=== PATIENT | male | born 1960 | race American Indian/Alaskan Native ===

== ENCOUNTER 2017-04-26 22:43 | Inpatient (IN) | payer MEDICARE, MEDICAID ==
--- NOTE | 2017-04-26 23:04 | ED PDOC ---
HPI: Psych/Substance Abuse Time Seen by Provider: 04/26/17 22:51 Chief Complaint (Nursing): Psychiatric Evaluation Chief Complaint (Provider): SI - without plan History Per: Patient History/Exam Limitations: no limitations Onset/Duration Of Symptoms: Days Current Symptoms Are (Timing): Still Present Additional Complaint(s): Pt states he has had a few episodes where he feels confused. PT states he is concerned he is developing dementia. Pt states that he has not seen a doctor about his concerns. Pt states he is now having SI because of thoughts about having dementia. Pt reports his grandmother having it and states it was horrible. Past Medical History Reviewed: Historical Data, Nursing Documentation, Vital Signs Vital Signs: Last Vital Signs Temp 97.3 F L 04/26/17 22:47 Pulse 99 H 04/26/17 22:47 Resp 17 04/26/17 22:47 BP 153/101 H 04/26/17 22:47 Pulse Ox 98 04/26/17 22:47 - Medical History PMH: Depression, HTN (Not taking medications ) Other PMH: Taking abilify and wellbutrin - Surgical History Surgical History: No Surg Hx - Family History Family History: States: No Known Family Hx - Living Arrangements Living Arrangements: With Family - Social History Current smoker - smoking cessation education provided: No - Allergies Allergies/Adverse Reactions: Allergies Allergy/AdvReac Type Severity Reaction Status Date / Time No Known Allergies Allergy Verified 04/26/17 22:47 Review of Systems ROS Statement: Except As Marked, All Systems Reviewed And Found Negative Constitutional: Negative for: Fever, Chills Psych: Positive for: Depression, Suicidal ideation Physical Exam - Reviewed Nursing Documentation Reviewed: Yes Vital Signs Reviewed: Yes - Physical Exam Appears: Positive for: Well, Non-toxic, No Acute Distress Head Exam: Positive for: ATRAUMATIC, NORMAL INSPECTION, NORMOCEPHALIC Skin: Positive for: Normal Color, Warm, DRY Eye Exam: Positive for: Normal appearance ENT: Positive for: Normal ENT Inspection Neck: Positive for: Normal, Painless ROM Cardiovascular/Chest: Positive for: Regular Rate, Rhythm Respiratory: Positive for: CNT, Normal Breath Sounds Back: Positive for: Normal Inspection Extremity: Positive for: Normal ROM Neurologic/Psych: Positive for: Alert, Oriented - ECG O2 Sat by Pulse Oximetry: 98 Medical Decision Making Medical Decision Making: Crisis evaluation completed. Dr. Lizama states he would like a urine drug screen and alcohol prior to making a decision. Endorsed to [facility] pending medical clearance Disposition - Clinical Impression Clinical Impression: Suicidal ideation - Patient ED Disposition Is Patient to be Admitted: Transfer of Care - Disposition Disposition: Transfer of Care Disposition Time: 23:31 Condition: GOOD Forms: [facility] (Urdu)
[2017-04-27 00:07] LABS: BASO # 0.1 K/uL (0.0-0.2); EOS # 0.3 K/uL (0.0-0.7); EOS % 3.2 % (0.0-4.0); HEMATOCRIT 41.7 % (35.0-51.0); LYMPH # 2.4 K/uL (1.0-4.3); LYMPH % 23.2 % (20.0-40.0); MEAN CELL VOLUME 93.2 fl (80.0-94.0); MEAN CORPUSCULAR HEMOGLOBIN 30.9 pg (27.0-31.0); MEAN CORPUSCULAR HGB CONC 33.1 g/dL (33.0-37.0); MEAN PLATELET VOLUME 8.1 fl (7.2-11.7); MONO # 0.9 K/uL (0.0-0.8); MONO % 9.1 % (0.0-10.0); NEUT # 6.6 K/uL (1.8-7.0); NEUT % 63.5 % (50.0-75.0); RED CELL DISTRIBUTION WIDTH 13.7 % (11.5-14.5); WHITE BLOOD COUNT 10.4 K/uL (4.8-10.8)
[2017-04-27 00:17] LABS: ALB/GLOB RATIO 1.4 (1.0-2.1); ALCOHOL SERUM < 10 mg/dl (0-10); ALKALINE PHOSPHATASE 89 U/L (38-126); ALT/SGPT 43 U/L (21-72); AST/SGOT 59 U/L (17-59); BILIRUBIN,TOTAL 0.8 mg/dl (0.2-1.3); BLOOD UREA NITROGEN 21 mg/dl (9-20); CARBON DIOXIDE 22 mmol/L (22-30); CHLORIDE 103 mmol/L (98-107); GFR AFRICAN-AMERICAN > 60; GLUCOSE,RANDOM 126 mg/dL (75-110); POTASSIUM 3.2 MMOL/L (3.6-5.0); SODIUM 139 mmol/l (132-148); TOTAL PROTEIN 8.2 G/DL (6.3-8.2)
[2017-04-27 01:52] LABS: URINE BILIRUBIN NEGATIVE (NEGATIVE); URINE BLOOD NEGATIVE (NEGATIVE); URINE COLOR YELLOW (YELLOW); URINE GLUCOSE (UA) NEG (Normal); URINE KETONE TRACE mg/dL (NEGATIVE); URINE LEUKOCYTE ESTERASE TRACE Leu/uL (Negative); URINE PROTEIN 100 mg/dL (NEGATIVE)
--- NOTE | 2017-04-27 02:41 | ED PDOC ---
- Laboratory Results Result Diagrams: 04/27/17 00:06 04/27/17 00:06 - ECG O2 Sat by Pulse Oximetry: 98 - Progress ED Course And Treament: SEEN BY CRISIS. D/W DR. DUSTY MONTANO TO COME TO ED FOR EVALUATION OF PATEINT. Disposition - Clinical Impression Clinical Impression: Suicidal ideation - POA Present On Arrival: None - Disposition Disposition: Transfer of Care Disposition Time: 06:00 Condition: GOOD Forms: [facility] (Finnish) Patient Signed Over To: Neo Nguyen Handoff Comments: PENDING EVALUATION BY DR. MONTANO
--- NOTE | 2017-04-27 06:33 | ED PDOC ---
- Laboratory Results Result Diagrams: 04/27/17 00:06 04/27/17 00:06 - ECG O2 Sat by Pulse Oximetry: 98 (RA) Pulse Ox Interpretation: Normal Medical Decision Making Medical Decision Makin:00 Patient signed out to me from MEHRDAD Kirkpatrick. Clinical sobriety and face-to- face evaluation with Dr. Lizama pending. Scribe Attestation: Documented by Viki Cunningham, acting as a scribe for Neo Nguyen MD. Provider Scribe Attestation: All medical record entries made by the Scribe were at my direction and personally dictated by me. I have reviewed the chart and agree that the record accurately reflects my personal performance of the history, physical exam, medical decision making, and the department course for this patient. I have also personally directed, reviewed, and agree with the discharge instructions and disposition. Disposition - Clinical Impression Clinical Impression: Depression, Suicidal ideation - POA Present On Arrival: None - Disposition Disposition: Transfer of Care Disposition Time: 07:00 Condition: GOOD Patient Signed Over To: Cholo De Dios III ED OBSERVATION Date of observation admission: 04/27/17 Time of observation admission: 06:00 - Observation admission statement Patient is being placed in observation because:: Alcohol intoxication - Goals of Observation Goals of observation are:: Clinical sobriety - Progress Note Progress Note: 04/27/17 06:00 Patient's vitals are stable.
--- NOTE | 2017-04-27 07:09 | ED PDOC ---
- Laboratory Results Result Diagrams: 04/27/17 00:06 04/27/17 00:06 - ECG O2 Sat by Pulse Oximetry: 98 (RA) Pulse Ox Interpretation: Normal Medical Decision Making Medical Decision Makin:00 Patient signed out to me from Dr. Nguyen. Clinical sobriety and [id number] evaluation by Dr. Lizama pending. Scribe Attestation: Documented by Viki Cunningham, acting as a scribe for Cholo De Dios DO. Provider Scribe Attestation: All medical record entries made by the Scribe were at my direction and personally dictated by me. I have reviewed the chart and agree that the record accurately reflects my personal performance of the history, physical exam, medical decision making, and the department course for this patient. I have also personally directed, reviewed, and agree with the discharge instructions and disposition. Disposition - Clinical Impression Clinical Impression: Suicidal ideation, Depression - POA Present On Arrival: None - Disposition Disposition: Admitted as In-Patient Disposition Time: 08:36 Condition: GOOD ED OBSERVATION Date of observation admission: 04/27/17 Time of observation admission: 07:00 - Observation admission statement Patient is being placed in observation because:: Alcohol intoxication - Goals of Observation Goals of observation are:: Clinical sobriety - Progress Note Progress Note: 04/27/17 07:00 Patient's vitals are stable. 04/27/17 08:35 Pt accepted for admission by psychiatrist. Labs and diagnostics reviewed EKG mildly prolonged QTc, may want to avoid QT prolonging agents. CXR read as no acute findings. Medically stable for psychiatric admission.
--- NOTE | 2017-04-27 08:26 | RAD ---
HISTORY: SI - Possible admission COMPARISON: None available. TECHNIQUE: Chest PA and lateral FINDINGS: LUNGS: No focal consolidation. 8 mm bilateral nodular densities appear compatible with nipple shadows. Please note that chest x-ray has limited sensitivity for the detection of pulmonary masses. PLEURA: No significant pleural effusion identified. No definite pneumothorax . CARDIOVASCULAR: Heart size appears within normal limits. OSSEOUS STRUCTURES: Degenerative changes of the spine. VISUALIZED UPPER ABDOMEN: Unremarkable. OTHER FINDINGS: None. IMPRESSION: No acute findings identified. Incidental findings as above.
[2017-04-27 08:36] VITALS: O2SAT 98
[2017-04-27] MEDS ORDERED: Potassium Chloride 20 mEq ER Tab PO ONE ×3 (08:36→17:43)
[2017-04-27] MEDS ORDERED: DiphenhydrAMINE 50 mg/ml Inj IM PRN (11:54)
[2017-04-27] MEDS ORDERED: Alum-Mag Hydrox-Simethicone Susp (30 mL) PO PRN (11:54)
[2017-04-27] MEDS ORDERED: Magnesium Hydroxide Susp 30 ml UD PO PRN (11:54)
--- NOTE | 2017-04-27 12:04 | PCM.PSYCH ---
Initial Psychiatric Evaluation - Initial Psychiatric Evaluation Type of Admission: Voluntary Legal Status: Capacity Chief Complaint (in patient's own words): i feel confused Patient's Reaction to Hospitalization: cooperative History of Present Illness and Precipitating Events: 56 yo male, apparently homeless and was from [facility] [place] where he apparently lost his apartment because "i don't think i paid my rent." pt presented to [place] [facility] where he walked after asking for directions. he stated he wanted to jump in front of a train to end his life. he did not mention his substance use until confronted with positive uds results and then states "i smoked mj a few days ago. also admits to smoking crack cocaine recently." pt states he is not feeling suicidal now in the hospital but he thinks "i need to be sent to assisted living, because i'm having trouble taking care of my needs." he states his mother had alzheimers disorder and he is worried that he has it also. he states he thinks he is demented. he claims he can't remember where he was living in [facility] [place] and where his last hospitalization was. he knows he takes wellbutrin and abilify, but does not know the dosages. Current Medications: Active Medications Generic Name Dose Route Start Last Admin Trade Name Freq PRN Reason Stop Dose Admin Acetaminophen 650 mg 04/27/17 11:54 Tylenol 325mg Tab PO Q4 PRN Pain, moderate (4-7) Al Hydrox/Mg Hydrox/Simethicone 30 ml 04/27/17 11:54 Maalox Plus 30 Ml PO Q4 PRN Dyspepsia Aripiprazole 10 mg 04/27/17 12:00 Abilify PO DAILY NATHEN Bupropion HCl 150 mg 04/28/17 09:00 Wellbutrin Sr 150 Mg PO DAILY NATHEN Diphenhydramine HCl 50 mg 04/27/17 11:54 Benadryl IM Q6 PRN Extrapyramidal S/S Unable PO Diphenhydramine HCl 50 mg 04/27/17 11:54 Benadryl PO Q6 PRN Extrapyramidal Symptoms Haloperidol 5 mg 04/27/17 11:54 Haldol PO Q4 PRN Agitation Haloperidol Lactate 5 mg 04/27/17 11:54 Haldol IM Q4 PRN Agitation, Unable to Take PO Lorazepam 2 mg 04/27/17 11:54 Ativan IM Q4 PRN Anxiety/Agitation,Unable PO Lorazepam 2 mg 04/27/17 11:54 Ativan PO Q4 PRN Anxiety/Agitation Magnesium Hydroxide 30 ml 04/27/17 11:54 Milk Of Magnesia PO HS PRN Constipation Past Psychiatric History - Past Psychiatric History Previous Treatment History: Inpatient Prior Professional Help: at least 4 previous admissions History of Abuse: does not report History of ETOH/Drug Use: crack cocaine use, mj use. cigarette use, but does not quantify. History of Family Illness: denies Pertinent Medical Hx (Current Medical&Sleep Prob, Allergies): Allergies Allergy/AdvReac Type Severity Reaction Status Date / Time No Known Allergies Allergy Verified 04/26/17 22:47 No Known Home Med 04/27/17 Review of Systems - Psychiatric Psychiatric: As Per HPI Mental Status Examination - Affect Affect: Blunted, Depressed - Motor Activity Motor Activity: Calm - Reliability in Providing Information Reliability in Providing Information: Fair - Speech Speech: Organized (but vague) - Mood Mood: Depressed - Formal Thought Process Formal Thought Process: No Impairment - Obsessions/Compulsions Obsessions: No Compulsions: No - Cognitive Functions Orientation: Person, Place, Situation, Time Sensorium: Alert Abstract Thinking: [place] Estimate of Intelligence: Average Judgement: Intact, as evidence by: Insight regarding need for hospitalization Memory: Recent intact, as evidence by: Other (seems to be selectively able to remember recent events) - Risk Risk: Suicidal (denies prior attempts- i did stand on a bridge once and think about jumping but i called the police), Diminished functioning - Strength & Assets Inventory Strength & Assets Inventory: Life experience - Limitations Limitations: Other (lacks supports, housing) DSM 5 DX - DSM 5 DSM 5 Diagnosis: major depression recurrent severe - Recommended/Plan of Treatment Treatment Recommendations and Plan of Treatment: admit to 3np for safety and observation gather collateral information restart medications- restart abilify and wellbutrin hospitalist consult encourage participation in therapy disposition planning Projected ELOS: 3-5 days Prognosis: fair - Smoking Cessation Smoking Cessation Initiated: No
--- NOTE | 2017-04-27 17:20 | PCM.BM ---
<Magnus Huynh - Last Filed: 04/27/17 17:33> Treatment Plan Problems - Problems identified on initial assessmt Problem 1 Date Initiated: 04/27/17 Time Initiated: : Assessment reference: NA Status: Active Hopelessness/Helplessness Date Initiated: 04/27/17 Time Initiated: 17:25 Assessment reference: NA Status: Active Treatment assets and liabiliti Patient Assests: adapts well, cooperative, ADL independent, good interpersonal skills Patient Liabilities: financial problems, substance abuse, imparied memory - Milieu Protocol Maintain good personal hygiene: daily Encourage regular showers, daily Remind patient to perform daily oral care, daily Assist patient to perform ADL's Maintain personal safety: daily Educate patient to report safety concerns to staff, every shift Monitor environment for contraband/sharps Medication safety: Monitor for expected outcome, potential side effects: every shift, Assess barriers to learning: every shift, Assess readiness for medication education: every shift Milieu Narrative: admit to 3np for safety and observation gather collateral information restart medications- restart abilify and wellbutrin hospitalist consult encourage participation in therapy disposition planning Discharge/Continuing Care - Education Needs Education Needs: Patient Medication, Patient Coping Skills, Patient Pain, Patient Personal Hygiene/Grooming - Treatment Team Participation Patient/Family/SO Statement: admit to 3np for safety and observation gather collateral information restart medications- restart abilify and wellbutrin hospitalist consult encourage participation in therapy disposition planning <Bobbi Sanabria - Last Filed: 04/30/17 15:49> Treatment assets and liabiliti Patient Assests: cooperative, resourceful, self-reliant, ADL independent, physically healthy, negotiates basic needs Patient Liabilities: financial problems, poor support system, substance abuse Family Contact Family involvement: Patient does not wish Family/SO involvement Family contact: Patient declines to allow family contact at present - Outside Agency Agency 1 Care involvment: Following patient during stay, Information-sharing, Other Agency contact name: [facility]. Patient has declined to provide consent for family/friends. Patient initially not agreeable to allowing signwriter to contact [facility] staff but later agreed. Director Talent Management received call from Nataliia (case maker) on 04/28 looking for patient but was unable to provide collateral information without consent. Director Talent Management to place call on 04/30 to further discuss patients progress on 3NP/ discharge plan. Agency contact number: ([phone]) - Goals for Treatment Patient goals for treatment: Patient continues to report believing he is showing signs of Alzheimers. Patient unable to provide sufficient necessary collateral secondary to memory lapses. Patient reports symptoms of depression and periods of confusion. Patient socially withdrawn and isolative on 3NP. Patient will continue stabilization on 3NP through medication management and group/supportive therapy. Patient to be encouraged to attend 3-6 groups/weekly to develop appropriate coping skills, improve insight, promote self-esteem, compliance and safety. Patient to be provided with referral for appropriate level of aftercare. Discharge/Continuing Care - Treatment Team Participation Patient/Family/SO Statement: 04/30/17 15:48 Patient is more forthcoming with collateral than upon admission. Patient disclosed in treatment team that he owes a drug dealer a significant amount of money and no longer feels safe in the supportive housing program or in [place]. Patient reports relapsing on cocaine prior to admission with intentions to end life. Patient continues to express concerns regarding possible symptoms of dementia. Patient appears to be selective regarding things he remembers and does not present with symptoms associated with dementia. Patient remains depressed, internally preoccupied and somewhat paranoid. Patient remains withdrawn on 3NP. Patient has been provided with psychoeducation regarding effects of depression on concentration, focus and memory.
--- NOTE | 2017-04-27 18:07 | CP.PCM.CON ---
History of Present Illness - History of Present Illness History of Present Illness: CC: "I am depressed" This is a 56-year-old male with past medical history of hypertension and depression, who the hospitalist services consulted on for medical management while the patient is in psychiatric facility at [facility]. He is currently here for suicidal ideation. The patient states that lately he has been having worsening forgetfulness and often loses his train of thought midsentence. This is been worsening over the past several months. He denies seeing a physician previously about this problem. The patient is a poor historian and states that he cannot really remember his medical problems. He is uncertain if he is had any surgeries in the past. He notes that he has walked a lot recently causing him to have blisters on both of his feet. He denies any recent illnesses. He admits to crack cocaine use along with marijuana use. He notes that he has been not been eating well lately but cannot explain why. Patient denies chest pain, recent illnesses, shortness of breath, fevers, chills , nausea, vomiting, diarrhea, headache. Rest of ROS as below. All of the patient 's and/or family's questions were answered at the bedside. Review of Systems - Hematologic/Lymphatic Additional comments: GENERAL/CONSTITUTIONAL: The patient denies fever, fatigue, weakness, weight gain or weight loss. HEAD, EYES, EARS, NOSE AND THROAT: Eyes - The patient denies pain, redness, loss of vision, double or blurred vision, flashing lights or spots, dryness, Ears, nose, mouth and throat. The patient denies ringing in the ears, loss of hearing, nosebleeds, loss of sense of smell, dry sinuses, sinusitis, post nasal drip, CARDIOVASCULAR: The patient denies chest pain, chest pressure, or irregular heartbeats, RESPIRATORY: The patient denies chronic dry cough, coughing up blood, coughing up mucus, wheezing, or shortness of breath. GASTROINTESTINAL: The patient denies decreased appetite, nausea, vomiting, vomiting blood or coffee ground material, heartburn, regurgitation, diarrhea, constipation, gas, blood in the stools, black tarry stools. GENITOURINARY: The patient denies difficult urination, pain or burning with urination, blood in the urine, frequency, or urgency MUSCULOSKELETAL: The patient denies arm, buttock, thigh or calf cramps. No joint or muscle pain. No muscle weakness or tenderness. No joint swelling, neck pain, back pain. SKIN: Admits to blisters on his feet bilaterally. The patient denies easy bruising, skin redness, skin rash, hives, sensitivity to sun exposure, tightness , nodules or bumps, hair loss, color changes in the hands or feet with cold. NEUROLOGIC: The patient denies headache, dizziness, fainting, muscle spasm, loss of consciousness, sensitivity or pain in the hands and feet or memory loss. PSYCHIATRIC: See HPI. ENDOCRINE: The patient denies intolerance to hot or cold temperature, flushing, fingernail changes, increased thirst, increased salt intake or decreased sexual desire. HEMATOLOGIC/LYMPHATIC: The patient denies anemia, bleeding tendency or clotting tendency. ALLERGIC/IMMUNOLOGIC: The patient denies rhinitis, asthma, skin sensitivity, latex allergies or sensitivity. Past Patient History - Infectious Disease Hx of Infectious Diseases: None - Past Social History Smoking Status: Former Smoker Alcohol: > 2 Drinks/Day Drugs: Cannabis, Cocaine - CARDIAC Hx Cardiac Disorders: Yes (htn) Hx Hypertension: Yes - PULMONARY Hx Respiratory Disorders: No - NEUROLOGICAL Other/Comment: Mother had dementia pt is afraid he is getting it. - HEENT Hx HEENT Problems: No - RENAL Hx Chronic Kidney Disease: No - ENDOCRINE/METABOLIC Hx Endocrine Disorders: No - HEMATOLOGICAL/ONCOLOGICAL Hx Blood Disorders: No - INTEGUMENTARY Hx Dermatological Problems: No - MUSCULOSKELETAL/RHEUMATOLOGICAL Hx Musculoskeletal Disorders: No - GASTROINTESTINAL Hx Gastrointestinal Disorders: No - GENITOURINARY/GYNECOLOGICAL Hx Genitourinary Disorders: No - PSYCHIATRIC Hx Depression: Yes Hx Substance Use: No - SURGICAL HISTORY Hx Surgeries: No - ANESTHESIA Hx Anesthesia: No Meds Allergies/Adverse Reactions: Allergies Allergy/AdvReac Type Severity Reaction Status Date / Time No Known Allergies Allergy Verified 04/26/17 22:47 - Medications Medications: Current Medications Acetaminophen (Tylenol 325mg Tab) 650 mg PO Q4 PRN PRN Reason: Pain, moderate (4-7) Al Hydrox/Mg Hydrox/Simethicone (Maalox Plus 30 Ml) 30 ml PO Q4 PRN PRN Reason: Dyspepsia Aripiprazole (Abilify) 10 mg PO DAILY [facility] Last Admin: 04/27/17 17:34 Dose: 10 mg Bupropion HCl (Wellbutrin Sr 150 Mg) 150 mg PO DAILY [facility] Diphenhydramine HCl (Benadryl) 50 mg IM Q6 PRN PRN Reason: Extrapyramidal S/S Unable PO Diphenhydramine HCl (Benadryl) 50 mg PO Q6 PRN PRN Reason: Extrapyramidal Symptoms Haloperidol (Haldol) 5 mg PO Q4 PRN PRN Reason: Agitation Haloperidol Lactate (Haldol) 5 mg IM Q4 PRN PRN Reason: Agitation, Unable to Take PO Lorazepam (Ativan) 2 mg IM Q4 PRN PRN Reason: Anxiety/Agitation,Unable PO Lorazepam (Ativan) 2 mg PO Q4 PRN PRN Reason: Anxiety/Agitation Magnesium Hydroxide (Milk Of Magnesia) 30 ml PO HS PRN PRN Reason: Constipation Physical Exam - Additional Findings Additional findings: EXAM: Vitals stable and reviewed GEN: WDWN, alert, cooperative HEENT: NCAT, PERRL, EOMI Neck: supple, no lymphadenopathy CARDIO: +S1S2, RRR, NO M/R/G LUNG: CTAB, NO W/R/R ABD: soft, NT, ND, no masses, no HSM EXT: no edema, pedal pulses. Small blisters on both feet bilaterally on the plantar surface. left heel blister. No evidence of infection or opening of the skin. Neuro: AAOx3, Strength equal, bilateral UE/LE Psych: flat affect, depressed mood Results - Vital Signs Recent Vital Signs: Last Vital Signs Temp 97 F L 04/27/17 17:16 Pulse 64 04/27/17 17:16 Resp 18 04/27/17 17:16 BP 150/83 04/27/17 17:16 Pulse Ox 98 04/27/17 08:36 - Labs Result Diagrams: 04/27/17 00:06 04/27/17 00:06 Labs: Laboratory Results - last 24 hr 04/27/17 04/27/17 04/27/17 00:06 00:06 01:46 WBC 10.4 RBC 4.47 Hgb 13.8 Hct 41.7 MCV 93.2 MCH 30.9 MCHC 33.1 RDW 13.7 Plt Count 238 MPV 8.1 Neut % (Auto) 63.5 Lymph % (Auto) 23.2 Grainger % (Auto) 9.1 Eos % (Auto) 3.2 Baso % (Auto) 1.0 Neut # 6.6 Lymph # 2.4 Grainger # 0.9 H Eos # 0.3 Baso # 0.1 Sodium 139 Potassium 3.2 L Chloride 103 Carbon Dioxide 22 Anion Gap 17 BUN 21 H Creatinine 1.2 Est GFR ( Amer) > 60 Est GFR (Non-Af Amer) > 60 Random Glucose 126 H Calcium 10.0 Total Bilirubin 0.8 AST 59 ALT 43 Alkaline Phosphatase 89 Total Protein 8.2 Albumin 4.8 Globulin 3.4 Albumin/Globulin Ratio 1.4 Urine Color Urine Clarity Urine pH Ur Specific Moran Urine Protein Urine Glucose (UA) Urine Ketones Urine Blood Urine Nitrate Urine Bilirubin Urine Urobilinogen Ur Leukocyte Esterase Urine Opiates Screen Negative Urine Methadone Screen Negative Ur Barbiturates Screen Negative Ur Phencyclidine Scrn Negative Ur Amphetamines Screen Negative U Benzodiazepines Scrn Negative U Oth Cocaine Metabols Positive H U Cannabinoids Screen Positive H Alcohol, Quantitative < 10 04/27/17 01:46 WBC RBC Hgb Hct MCV MCH MCHC RDW Plt Count MPV Neut % (Auto) Lymph % (Auto) Grainger % (Auto) Eos % (Auto) Baso % (Auto) Neut # Lymph # Grainger # Eos # Baso # Sodium Potassium Chloride Carbon Dioxide Anion Gap BUN Creatinine Est GFR ( Amer) Est GFR (Non-Af Amer) Random Glucose Calcium Total Bilirubin AST ALT Alkaline Phosphatase Total Protein Albumin Globulin Albumin/Globulin Ratio Urine Color Yellow Urine Clarity Cloudy Urine pH 5.0 Ur Specific Moran 1.034 H Urine Protein 100 Urine Glucose (UA) Neg Urine Ketones Trace Urine Blood Negative Urine Nitrate Negative Urine Bilirubin Negative Urine Urobilinogen 2.0 Ur Leukocyte Esterase Trace Urine Opiates Screen Urine Methadone Screen Ur Barbiturates Screen Ur Phencyclidine Scrn Ur Amphetamines Screen U Benzodiazepines Scrn U Oth Cocaine Metabols U Cannabinoids Screen Alcohol, Quantitative - Impressions Impression: EKG reveals sinus rhythm at rate of 81, occasional PACs, QT prolonged slightly at 422, T wave changes in lateral leads, no acute ST or T wave changes Assessment & Plan - Assessment and Plan (Free Text) Plan: ASSESSMENT - Essential hypertension - Hypokalemia due to poor po intake - Mild QT prolongation - History of crack cocaine use - Homelessness - Hyperglycemia (mild) - Depression with suicidal ideation and forgetfulness PLAN - Monitor vitals - HGA1C, lipid profile pending - Will give another 20meq of Kdur, repeat K in AM - Check Mag, phos as well in AM - No need to add antihypertensive medication at this time. Patient could benefit from FÁTIMA inhibitor such as lisinopril, small dose, if diabetes is confirmed with HGA1C. Note: patient should not have beta blockers due to unopposed alpha- stimulation from cocaine use - Continue Wellbutrin, Abilify as per psychiatry - Rest of psychiatric therapy deferred - Thank you for the consult
[2017-04-28 08:56] LABS: MAGNESIUM 2.3 MG/DL (1.6-2.3); PHOSPHOROUS 3.3 mg/dl (2.5-4.5); POTASSIUM 3.7 MMOL/L (3.6-5.0)
[2017-04-28] MEDS: buPROPion SR 150 MG TABLET PO SCH (10:12)
--- NOTE | 2017-04-28 13:27 | CARD ---
APPROVED REPORT EKG Measurement Heart [id number] MS [id number] <Conclusion> Sinus rhythm with premature atrial complexes Minimal voltage criteria for LVH, may be normal variant Nonspecific T wave abnormality Prolonged QT Abnormal ECG
[2017-04-29] MEDS: buPROPion SR 150 MG TABLET PO SCH (09:16)
--- NOTE | 2017-04-29 19:04 | PCM.PYCHPN ---
Psychiatric Progress Note - Psychiatric Progress Note Patient seen today, length of contact: pt sen and evaluated Patient Chief Complaint: pt has remained much internally preoccupied and minimises his substance ab use and remains with poor insight and need further stabilization.no side effects to meds . Medication Change: No Medical Record Reviewed: Yes Mental Status Examination - Cognitive Function Orientation: Person, Place, Situation, Time Memory: Intact Attention: Poor - Mood Mood: Depressed - Affect Affect: Blunted, Depressed - Speech Speech: Appropriate - Formal Thought Process Formal Thought Process: No Impairment - Suicidal Ideation Suicidal Ideation: No - Homicidal Ideation Homicidal Ideation: No Goal/Treatment Plan - Goal/Treatment Plan Progress Toward Problem(s) and Goals/Treatment Plan: will continue the current regimen of wellbutrin and abilify and titrate as needed to stabilize pt will engage pt in therapy and groups.
[2017-04-30] MEDS: buPROPion SR 150 MG TABLET PO SCH (08:48)
--- NOTE | 2017-04-30 12:23 | PCM.PYCHPN ---
Psychiatric Progress Note - Psychiatric Progress Note Patient seen today, length of contact: in treatment team Patient Chief Complaint: i feel confused Problems Identified/Issues Discussed: continues to feel confused. states he "may have taken money from some people who want to kill me" it "may have been thousands of dollars" it "may not be safe for me to go back to [place] ever" he has selective memory of things and vague on details of other things. he reports going to the store and not being able to remember why he is there. he has supportive housing but doesn't want to return to it. pt remembers now that "i may have tried to use cocaine to kill myself..you know, give my self a heart attack or something." Medication Change: Yes (inc. wellbutrin) Medical Record Reviewed: Yes Mental Status Examination - Cognitive Function Orientation: Person, Place, Situation, Time Memory: Intact Attention: WNL Concentration: Poor Association: WNL Fund of Knowledge: WNL Decription of patient's judgement and insights: fair - Mood Mood: Depressed - Affect Affect: Blunted, Depressed - Speech Speech: Soft - Formal Thought Process Formal Thought Process: No Impairment - Suicidal Ideation Suicidal Ideation: Yes Plan: passive currently. feels safe in hospital - Homicidal Ideation Homicidal Ideation: No Goal/Treatment Plan - Goal/Treatment Plan Need for Continued Stay: Remain at risks for inpatient hospitalization, Severe functional impairment Progress Toward Problem(s) and Goals/Treatment Plan: major depression recurrent will continue current meds with increase in wellbutrin pt does not appear to have dementia- may have some memory/concentration issues related to depression seems to have selected areas where he has memory and his complaints to not seem to follow pattern of a dementia diagnosis Estimated Date of D/C: 05/03/17
[2017-05-01] MEDS: buPROPion SR 150 MG TABLET PO SCH (08:46)
[2017-05-02] MEDS: buPROPion SR 150 MG TABLET PO SCH (09:39)
--- NOTE | 2017-05-02 09:59 | PCM.PYCHPN ---
Psychiatric Progress Note - Psychiatric Progress Note Patient seen today, length of contact: discussed with team Patient Chief Complaint: i am okay Problems Identified/Issues Discussed: continues to worry about being confused. able to remember name of the director of a movie when overheard the conversation of others and interrupted conversation to provide the name. sleeping well. still resistant to participating in groups. pt refusing to go back to his housing in [facility]. Medication Change: Yes (inc. abilify) Medical Record Reviewed: Yes Mental Status Examination - Cognitive Function Orientation: Person, Place, Situation, Time Memory: Intact Attention: WNL Concentration: WNL Association: [facility] Fund of Knowledge: [facility] Decription of patient's judgement and insights: fair - Mood Mood: Depressed, Anxious - Affect Affect: Blunted - Speech Speech: Soft - Formal Thought Process Formal Thought Process: No Impairment Psychotic Thoughts and Behaviors: denies a/v hallucinations. ? delusions/paranoid ideations - Suicidal Ideation Suicidal Ideation: No Plan: denies - Homicidal Ideation Homicidal Ideation: No Goal/Treatment Plan - Goal/Treatment Plan Need for Continued Stay: Remain at risks for inpatient hospitalization, Severe functional impairment Progress Toward Problem(s) and Goals/Treatment Plan: major depression recurrent will continue current meds with increase in abilify pt does not appear to have dementia- may have some memory/concentration issues related to depression that are improving with treatment seems to have selected areas where he has memory and his complaints to not seem to follow pattern of a dementia diagnosis Estimated Date of D/C: 05/03/17
[2017-05-03] MEDS: buPROPion SR 150 MG TABLET PO SCH (09:00)
--- NOTE | 2017-05-03 11:01 | PCM.PYCHPN ---
Psychiatric Progress Note - Psychiatric Progress Note Patient seen today, length of contact: discussed with team Patient Chief Complaint: i didn't sleep well Problems Identified/Issues Discussed: pt states he is feeling better. reports some poor sleep. he denies medication side effects. more visible in the milieu. Medication Change: No ( ) Medical Record Reviewed: Yes Mental Status Examination - Cognitive Function Orientation: Person, Place, Situation, Time Memory: Intact Attention: WNL Concentration: WNL Association: WNL Fund of Knowledge: [facility] Decription of patient's judgement and insights: fair - Mood Mood: Depressed - Affect Affect: Broad - Speech Speech: Soft - Formal Thought Process Formal Thought Process: No Impairment Psychotic Thoughts and Behaviors: denies a/v hallucinations. ? delusions/paranoid ideations - Suicidal Ideation Suicidal Ideation: No - Homicidal Ideation Homicidal Ideation: No Goal/Treatment Plan - Goal/Treatment Plan Need for Continued Stay: Remain at risks for inpatient hospitalization, Severe functional impairment Progress Toward Problem(s) and Goals/Treatment Plan: major depression recurrent will continue current meds pt does not appear to have dementia- may have some memory/concentration issues related to depression that are improving with treatment seems to have selected areas where he has memory and his complaints to not seem to follow pattern of a dementia diagnosis will have dr. sandoval see pt prior to discharge discharge tomorrow Estimated Date of D/C: 05/04/17
[2017-05-04] MEDS: buPROPion SR 150 MG TABLET PO SCH (08:59)
[2017-05-04 09:00] VITALS: BP 119/89
--- NOTE | 2017-05-04 09:42 | PCM.PYCHDC ---
Mental Status Examination - Mental Status Examination Orientation: Person, Place, Situation, Time Memory: Intact Mood: Neutral Affect: Constricted Speech: Soft Attention: WNL Concentration: WNL Association: WNL Fund of Knowledge: WNL Formal Thought Process: No Impairment Description of patient's judgement and insight: fair Psychotic Thoughts and Behaviors: denies a/v hallucinations. Suicidal Ideation: No Current Homicidal Ideation?: No Plan: pt denies any suicidal or homicidal thoughts Discharge Summary - Discharge Note Reason for Hospitalization: pt stated he was confused Psychiatric History (includes Medical, Family, Personal Hx): history of major depression Laboratory Data: uds positive for cocaine Consultations:: List each consultation separately and include: 1. Reason for request. 2. Findings. 3. Follow-up Consultations: seen by the hospitalist. Summary of Hospital Course include:: 1. Description of specific treatment plan utilized for patients during their course of treatmen. 2. Summarize the time- course for resolution of acute symptoms and/or regressed behaviors. 3. Describe issues identified and worked on during hospitalization. 4. Describe medication utilized. 5. Describe medical problems identified and treated. 6. Reassessment of suicide risk Summary of Hospital Course: 56 yo male, apparently homeless and was [place] [facility] [place] apparently lost his apartment because "i don't think i paid my rent." pt presented to [facility] where he walked after asking for directions. he stated he wanted to jump in front of a train to end his life. he did not mention his substance use until confronted with positive uds results and then states "i smoked mj a few days ago. also admits to smoking crack cocaine recently." pt states he is not feeling suicidal now in the hospital but he thinks "i need to be sent to assisted living, because i'm having trouble taking care of my needs." he states his mother had alzheimers disorder and he is worried that he has it also. he states he thinks he is demented. he claims he can't remember where he was living [place] [facility] [place] and where his last hospitalization was. he knows he takes wellbutrin and abilify, but does not know the dosages. hospital course pt was [facility] and oriented to the unit. he was seen by the adjunct faculty for medical terminology. he was started on his previous medications. his wellbutrin was raised to 300mg and his abilify was increased to 15mg. he was initially isolative. he was initially c/o feeling confused and worried that he had dementia. he was seen by dr. sandoval for a cognitive assessment and the results are currently pending. at the time of discharge he was refusing to return to [place] and was referred to treatment in [place] at the time of discharge he was denying any suicidal or homicidal thoughts/plans or intent. - Final Diagnosis (DSM 5) Condition upon Discharge: GOOD DSM 5: major depression recurrent moderate Disposition: HOME/ ROUTINE Follow-up Treatment Plan: follow up with aftercare appointments as scheduled do not use alcohol, tobacco or other illicit substances call 911 if any suicidal or homicidal thoughts take your medications as prescribed Prescriptions/Medication Reconciliation: ARIPiprazole [Abilify] 15 mg PO DAILY #30 tab buPROPion XL [Wellbutrin XL] 300 mg PO DAILY #30 t24 cloNIDine [Catapres] 0.1 mg PO BID #60 tab - Smoking Cessation Smoking Cessation Medication prescribed: No - Antipsychotic Medications Pt discharged on 2 or more routine antipsychotic medications: No
[2017-05-04 09:51] VITALS: PULSE 89; RESP 16; TEMP 97.7
--- NOTE | 2017-05-04 12:04 | CP.PCM.CON ---
History of Present Illness - History of Present Illness History of Present Illness: Pt is a 56 year old male with a history of depression and cocaine/marijuana abuse admitted to [facility] and referred to the investigative writer for evaluation. Pt unable to provide the reasons/circumstances of his admission. He reported memory issues and distress due to the above. On the DRS, Pt scored an overall score of 100>. Pt scored in the DEficient Range on Initiation and Memory tasks. Pt's conceptualization, and Construction skills fell in the Borderline Range. His Attention skills fell within normal limits. Overall 100> Pt evidenced slowed processing throughout the evaluation. Re-evaluation when his depression reduces and he is sober for a significant of time. Deficits evident though may be reduced with improved overall health. Thank you Dr. French Past Patient History - Infectious Disease Hx of Infectious Diseases: None - Past Social History Smoking Status: Former Smoker Alcohol: > 2 Drinks/Day Drugs: Cannabis, Cocaine - CARDIAC Hx Cardiac Disorders: Yes (htn) Hx Hypertension: Yes - PULMONARY Hx Respiratory Disorders: No - NEUROLOGICAL Other/Comment: Mother had dementia pt is afraid he is getting it. - HEENT Hx HEENT Problems: No - RENAL Hx Chronic Kidney Disease: No - ENDOCRINE/METABOLIC Hx Endocrine Disorders: No - HEMATOLOGICAL/ONCOLOGICAL Hx Blood Disorders: No - INTEGUMENTARY Hx Dermatological Problems: No - MUSCULOSKELETAL/RHEUMATOLOGICAL Hx Musculoskeletal Disorders: No - GASTROINTESTINAL Hx Gastrointestinal Disorders: No - GENITOURINARY/GYNECOLOGICAL Hx Genitourinary Disorders: No - PSYCHIATRIC Hx Depression: Yes Hx Substance Use: No - SURGICAL HISTORY Hx Surgeries: No - ANESTHESIA Hx Anesthesia: No Meds Home Medications: Home Medication List Medication Instructions Recorded Confirmed Type ARIPiprazole [Abilify] 15 mg PO DAILY #30 tab 05/04/17 Rx buPROPion XL [Wellbutrin XL] 300 mg PO DAILY #30 t24 05/04/17 Rx cloNIDine [Catapres] 0.1 mg PO BID #60 tab 05/04/17 Rx Allergies/Adverse Reactions: Allergies Allergy/AdvReac Type Severity Reaction Status Date / Time No Known Allergies Allergy Verified 04/26/17 22:47 - Medications Medications: Current Medications Acetaminophen (Tylenol 325mg Tab) 650 mg PO Q4 PRN PRN Reason: Pain, moderate (4-7) Al Hydrox/Mg Hydrox/Simethicone (Maalox Plus 30 Ml) 30 ml PO Q4 PRN PRN Reason: Dyspepsia Aripiprazole (Abilify) 15 mg PO DAILY [facility] Last Admin: 05/04/17 08:56 Dose: 15 mg Bupropion HCl (Wellbutrin Sr 150 Mg) 300 mg PO DAILY [facility] Last Admin: 05/04/17 08:59 Dose: 300 mg Clonidine HCl (Catapres) 0.1 mg PO BID [facility] Last Admin: 05/04/17 08:56 Dose: 0.1 mg Diphenhydramine HCl (Benadryl) 50 mg IM Q6 PRN PRN Reason: Extrapyramidal S/S Unable PO Diphenhydramine HCl (Benadryl) 50 mg PO Q6 PRN PRN Reason: Extrapyramidal Symptoms Haloperidol (Haldol) 5 mg PO Q4 PRN PRN Reason: Agitation Haloperidol Lactate (Haldol) 5 mg IM Q4 PRN PRN Reason: Agitation, Unable to Take PO Lorazepam (Ativan) 2 mg IM Q4 PRN PRN Reason: Anxiety/Agitation,Unable PO Lorazepam (Ativan) 2 mg PO Q4 PRN PRN Reason: Anxiety/Agitation Magnesium Hydroxide (Milk Of Magnesia) 30 ml PO HS PRN PRN Reason: Constipation Results - Vital Signs Recent Vital Signs: Last Vital Signs Temp 97.7 F 05/04/17 09:00 Pulse 89 05/04/17 09:00 Resp 16 05/04/17 09:00 BP 119/89 05/04/17 09:00 Pulse Ox 98 04/28/17 01:36 - Labs Result Diagrams: 04/27/17 00:06 04/28/17 08:15
== END 2017-05-04 12:13 | disposition home or self-care (01) | DRG 885 ==
LOC: H.ER 22:43 → H.EROBSV 04-27 06:34 → OBSVTOIN 04-27 08:33 → H.ERHOLD 04-27 08:33 → H.PSYCH 04-27 11:01
PROVIDERS: ADMIT Psychiatry & Neurology Psychiatry; ATTEND Psychiatry & Neurology Psychiatry
PROC: GZ51ZZZ Individual Psychotherapy, Behavioral (ICD-10-PCS; 2017-04-27)
PROC: GZHZZZZ Group Psychotherapy (ICD-10-PCS; principal; 2017-05-02)
DX: F33.1 Major depressive disorder, recurrent, moderate (principal); R45.851 Suicidal ideations; I10 Essential (primary) hypertension; E87.6 Hypokalemia; F12.90 Cannabis use, unspecified, uncomplicated; F14.90 Cocaine use, unspecified, uncomplicated; Z59.0 Homelessness; Z79.899 Other long term (current) drug therapy; Z87.891 Personal history of nicotine dependence; R73.9 Hyperglycemia, unspecified